=== PATIENT | male | born 1965 | race African-American/Black ===

== ENCOUNTER → 2016-12-29 | Outpatient (CLI) | payer OTHER ==
--- NOTE | 2016-12-30 10:00 | CR ---
EXAM DATE: 12/29/16 PATIENT'S AGE: 51 Patient: [facility] Facility: [place], [place] Site . Site : 1965 Study: XRay Extremity Right [id number]/24/2017 11:32:28 AM Ordering Physician: Renetta Vee Final Report: HISTORY: Pain in right hip. Findings: AP and frogleg views of hips excludes the iliac crests. The pelvis ring and sacral ala are intact. Joint spaces are maintained within the hips. No subchondral abnormality, fracture or dislocation seen. Impression: No acute bony abnormality within the right hip. Dictated by Debbie Eubanks MD @ Dec 30 2016 12:48AM (Electronic Signature) Report Signed by Proxy and Original Signed Document filed in the Medical Record. FELICIA
== END ==
LOC: MW.CHORTHO 07:38
PROVIDERS: ATTEND Orthopaedic Surgery
DX: M25.551 Pain in right hip (principal)
CPT/HCPCS: 73502-26-RT; 73502-RT

== ENCOUNTER 2019-03-30 06:22 | Day surgery (SDC) | payer OTHER ==
[~2019-03-30 06:22] MED LIST: Acetaminophen/HYDROcodone 325-5 MG Tab PO PRN; Lactated Ringers 1,000 ML IV SCH; ceFAZolin 2 GM in Premix Bag 1 BAG IV SCH
--- NOTE | 2019-03-30 07:11 | PCM.PREANE ---
Preanesthetic Assessment - Anesthesia/Transfusion/Family Hx Anesthesia History: Prior Anesthesia Without Reaction Other Type of Anesthesia Reaction Comment: Denies any known problems in the past Family History of Anesthesia Reaction: No Transfusion History: No Prior Transfusion(s) - Review of Systems General: No Symptoms Pulmonary: No Symptoms Cardiovascular: No Symptoms Gastrointestinal: No Symptoms Neurological: No Symptoms Other: Reports: None - Physical Assessment NPO Status Date: 03/29/19 O2 Sat by Pulse Oximetry: 97 Respiratory Rate: 16 Vital Signs: Last Vital Signs Temp 97.0 F 03/30/19 07:04 Pulse 87 03/30/19 07:04 Resp 16 03/30/19 07:04 BP 141/97 H 03/30/19 07:04 Pulse Ox 97 03/30/19 07:04 Height: 5 ft 8 in Weight: 102.058 kg ASA Class: 2 Mental Status: Alert & Oriented x3 Airway Class: Mallampati = 2 Dentition: Reports: Broken Tooth/Teeth (chipped central maxillary incisor) ROM/Head Extension: Full Lungs: Clear to Auscultation, Normal Respiratory Effort Cardiovascular: Regular Rate, Regular Rhythm - Allergies Allergies/Adverse Reactions: Allergies Allergy/AdvReac Type Severity Reaction Status Date / Time metformin Allergy Unknown Other Verified 03/30/19 06:49 - Blood Blood Available: No - Anesthesia Plan Pre-Op Medication Ordered: None - Acknowledgements Anesthesia Type Planned: General Anesthesia Pt an Appropriate Candidate for the Planned Anesthesia: Yes Alternatives and Risks of Anesthesia Discussed w Pt/Guardian: Yes Pt/Guardian Understands and Agrees with Anesthesia Plan: Yes Additional Comments: anes prob lit: smmoker PLAN: ga/lma PreAnesthesia Questionnaire HEENT History: Reports: None Cardiovascular History: Reports: Hypertension Respiratory History: Reports: None Gastrointestinal History: Reports: None Genitourinary History: Reports: None Musculoskeletal History: Reports: Fracture Other Musculoskeletal History: hx fx leg and both ankles Neurological History: Reports: None Psychiatric History: Reports: None Endocrine/Metabolic History: Reports: Obesity/BMI 30+ Hematologic History: Reports: None Immunologic History: Reports: None Oncologic (Cancer) History: Reports: None Dermatologic History: Reports: None - Past Surgical History Head Surgeries/Procedures: Reports: None HEENT Surgical History: Reports: None Cardiovascular Surgical History: Reports: None Respiratory Surgical History: Reports: None GI Surgical History: Reports: None Male Surgical History: Reports: None Endocrine Surgical History: Reports: None Neurological Surgical History: Reports: None Other Musculoskeletal Surgeries/Procedures:: ORIF both ankles Oncologic Surgical History: Reports: None Dermatological Surgical History: Reports: None - SUBSTANCE USE Smoking Status *Q: Current Every Day Smoker Tobacco Use Within Last Twelve Months: Cigarettes - HOME MEDS Home Medications: Home Meds Cholecalciferol (Vitamin D3) [Vitamin D3] 1,000 units PO DAILY 03/16/19 [History ] Losartan [Cozaar] 100 mg PO DAILY 03/16/19 [History] amLODIPine Besylate [Amlodipine Besylate] 10 mg PO DAILY 03/16/19 [History] traMADol HCl [Tramadol HCl] 50 mg PO ASDIRECTED PRN 03/16/19 [History] - CURRENT (IN HOUSE) MEDS Current Meds: Current Medications Hydrocodone Bitart/Acetaminophen ([place] 325-5 Mg) 1 - 2 tab PO Q4H PRN PRN Reason: Pain Lactated Ringer's (Ringers, Lactated) 1,000 mls @ 100 mls/hr IV ASDIRECTED JOSE ALFREDO Cefazolin Sodium/Dextrose 2 gm (/ Premix) 50 mls @ 100 mls/hr IV ONCALL JOSE ALFREDO Discontinued Medications Hydrocodone Bitart/Acetaminophen ([place] 325-5 Mg) 1 - 2 tab PO Q4H PRN PRN Reason: Pain Cefazolin Sodium/Dextrose 2 gm (/ Premix) 50 mls @ 100 mls/hr IV ONCALL JOSE ALFREDO Lactated Ringer's (Ringers, Lactated) 1,000 mls @ 100 mls/hr IV ASDIRECTED JOSE ALFREDO
[2019-03-30] MEDS ORDERED: Propofol 200 MG/20 ML SDV ONE (07:26)
[2019-03-30] MEDS ORDERED: Ondansetron 4 MG/2 ML SDV ONE (07:26)
[2019-03-30] MEDS ORDERED: Lidocaine 2% 5 ML SDV ONE (07:26)
[2019-03-30] MEDS ORDERED: fentaNYL 100 MCG/2 ML SDV ONE (07:26)
[2019-03-30] MEDS ORDERED: Lidocaine 1% 20 ML MDV ONE (07:26)
[2019-03-30] MEDS ORDERED: Midazolam 1 MG/ML 2 ML SDV ONE (07:26)
[2019-03-30] MEDS ORDERED: ceFAZolin/Dextrose,Iso-Osmotic 2 GM/50 ML Duplex Bag IV ONE (07:47)
[2019-03-30] MEDS ORDERED: ceFAZolin 2 GM in Premix Bag 1 BAG IV SCH (08:00)
[2019-03-30] MEDS ORDERED: Acetaminophen/HYDROcodone 325-5 MG Tab PO PRN (08:00)
[2019-03-30] MEDS ORDERED: 50% Dextrose in Water 50 ML Syringe IVPUSH PRN (08:35)
[2019-03-30] MEDS ORDERED: EPINEPHrine 1:10,000 1 MG/10 ML Syringe IVPUSH PRN (08:35)
[2019-03-30] MEDS ORDERED: Naloxone 0.4 MG/ML Syringe IVPUSH PRN (08:35)
[2019-03-30] MEDS ORDERED: Atropine 0.1 MG/ML 10 ML Syringe IVPUSH PRN ×2 (08:35)
[2019-03-30] MEDS ORDERED: Ketorolac 30 MG/ML SDV ONE (08:36)
--- NOTE | 2019-03-30 08:55 | PCM.OPNOTE ---
- General Post-Op/Procedure Note Date of Surgery/Procedure: 03/30/19 Operative Procedure(s): L knee scope with PMM Post-Op Diagnosis: DJD left knee, left knee med meniscus tear Anesthesia Technique: General LMA Primary Surgeon: Nimisha Law Tenter Frame Operator: Tiff Martines in mLs: 5 Condition: Good Free Text/Narrative:: tt=18 min #[id number]
[2019-03-30] MEDS: fentaNYL 100 MCG/2 ML SDV IVPUSH PRN ×2 (09:05→09:12)
--- NOTE | 2019-03-30 09:22 | PCM.POSTAN ---
POST ANESTHESIA ASSESSMENT - MENTAL STATUS Mental Status: Alert, Oriented - RESPIRATORY Respiratory Status: Respiratory Rate WNL, Airway Patent, O2 Saturation Stable - CARDIOVASCULAR CV Status: Pulse Rate WNL, Blood Pressure Stable - GASTROINTESTINAL GI Status: No Symptoms - PAIN Pain Score: 3 (Pt awake and talking in no distress) - POST OP HYDRATION Hydration Status: Adequate & Stable - OBSERVATIONS Free Text/Narrative:: Pt tolerated anesthesia well. No apparent complications.
[2019-03-30 10:16] VITALS: BP 116/73
--- NOTE | 2019-03-30 10:46 | PCM48HPAN ---
Post Anesthesia Note - EVALUATION WITHIN 48HRS OF ANESTHETIC Vital Signs in Normal Range: Yes Patient Participated in Evaluation: Yes Respiratory Function Stable: Yes Airway Patent: Yes Cardiovascular Function Stable: Yes Hydration Status Stable: Yes Pain Control Satisfactory: Yes Nausea and Vomiting Control Satisfactory: Yes Mental Status Recovered: Yes Resp Rate: 16
--- NOTE | 2019-03-30 10:48 | OR ---
SURGEON: Nimisha Law MD DATE OF PROCEDURE: 03/30/2019 PREOPERATIVE DIAGNOSIS: Left knee medial meniscus tear. POSTOPERATIVE DIAGNOSES: 1. Left knee medial meniscus tear. 2. Degenerative joint disease, left knee. PROCEDURE: Left knee arthroscopy with partial medial meniscectomy. PRIMARY SURGEON: Nimisha Law MD. UNLEAVENED DOUGH MIXER: YOVANNY Orozco. ANESTHESIA: General. ESTIMATED BLOOD LOSS: 5 mL. TOURNIQUET TIME: 18 minutes. COMPLICATIONS: None. DVT PROPHYLAXIS: Not indicated. IMPLANTS USED: None. BRIEF HISTORY: Shoaib is a 53-year-old male, who has had complaint of progressive left knee pain. An MRI did show a tear of the medial meniscus. Due to his lack of response to conservative treatment, I did recommend surgical intervention. The risks and goals of the procedure were discussed with the patient and were documented preoperatively. He agreed to proceed. DESCRIPTION OF PROCEDURE: The patient was properly identified and brought to the operating room. He was transferred from the OR cart and placed on the operating room table in supine position. General anesthesia was administered. After adequate anesthesia was obtained, a well-padded tourniquet was applied to the left lower extremity. Left lower extremity was then prepped in standard fashion using ChloraPrep solution. It was then sterilely draped. A time-out was performed to ensure correct site and procedure. Preoperative antibiotics were given. The surgical site had been marked preoperatively. An Esmarch was used to exsanguinate the left lower extremity and the tourniquet was inflated to 250 mmHg. A lateral portal arthrotomy was established. Blunt trocar and cannula were introduced into the suprapatellar pouch. Camera, inflow, and outflow were assembled. No significant synovitis was noted. The patellofemoral joint did show degenerative changes consistent with grade 2 to grade 3. The patella appeared to track centrally. I then extended down the lateral and medial gutter. No loose bodies were identified. I then entered the medial compartment. A medial portal arthrotomy was established. A blunt probe was inserted. Tearing of the medial meniscus was noted. It was found to be unstable. Using a combination of biters and shaver, this was resected back to a stable remnant. It was again probed and the remainder was found to be intact. The medial femoral condyle showed diffuse grade 2 to grade 3 chondromalacia along with similar findings on the medial tibial plateau. I then entered the notch. Both the ACL and PCL were probed and found to be intact. I then entered the lateral compartment. The meniscus was probed and found to be stable. No tearing was noted. The lateral tibial plateau showed diffuse grade 2 findings. A chondroplasty was performed to remove any loose cartilage fragments. Grade 1 chondromalacia was noted along the lateral femoral condyle. I then re-entered the patellofemoral joint. Chondroplasty of the patella was performed to remove any loose cartilage fragments. Instruments were then removed from the knee. The portal sites were closed with 3-0 nylon. 1% lidocaine was injected along the portal tracts. Xeroform gauze was placed over the wounds and a bulky dressing was applied. The tourniquet was then deflated. He was awakened from his anesthetic and transferred back to the operating room cart. He was brought to recovery room in stable condition. All needle and sponge counts were correct. RADHA / ARIELLE /[id number]
== END 2019-03-30 10:05 | disposition home or self-care (01) ==
LOC: MW.SDS 06:22
PROVIDERS: ATTEND Orthopaedic Surgery
DX: S83.242A Other tear of medial meniscus, current injury, left knee, initial encounter (principal); M17.12 Unilateral primary osteoarthritis, left knee; M94.262 Chondromalacia, left knee; I10 Essential (primary) hypertension; E11.9 Type 2 diabetes mellitus without complications; E78.5 Hyperlipidemia, unspecified; F17.210 Nicotine dependence, cigarettes, uncomplicated; X58.XXXA Exposure to other specified factors, initial encounter; Z88.8 Allergy status to other drugs, medicaments and biological substances; Z79.899 Other long term (current) drug therapy
CPT/HCPCS: J0690; J1885; J2001; J2250; J2405; J2704; J3010; J7120

== ENCOUNTER 2020-03-09 13:55 | Emergency (ER) | payer OTHER ==
--- NOTE | 2020-03-09 15:10 | CR ---
Right ankle: 3 views of the right ankle were obtained. Orthopedic hardware is noted within the distal tibia. Acute fracture is seen directly above the hardware within the distal tibia. Displacement by about one cortical width is seen. Distal fibula appears intact. Impression: 1. Acute tibial fracture as described above. Diagnostic code #5 This report was dictated in MDT
--- NOTE | 2020-03-09 15:11 | CR ---
Right tibia and fibula: AP and lateral views of the right tibia and fibula were obtained. Distal tibial diaphyseal fracture is seen with slight displacement and mild comminution. This fracture occurs along the superior aspect of orthopedic hardware. Proximal fibular shaft fracture is noted with slight displacement. No additional bony abnormality is seen. Soft tissue swelling is noted. Impression: 1. Distal tibial diaphyseal fracture and proximal fibular shaft fracture. 2. Soft tissue swelling. Diagnostic code #5 This report was dictated in MDT
--- NOTE | 2020-03-09 15:13 | EDM.PDOC ---
ED HPI GENERAL MEDICAL PROBLEM - General Chief Complaint: Lower Extremity Injury/Pain Stated Complaint: INJURY RT LEG Time Seen by Provider: 03/09/20 15:12 Source of Information: Reports: Patient History Limitations: Reports: No Limitations - History of Present Illness INITIAL COMMENTS - FREE TEXT/NARRATIVE: 54-year-old male with a history of ORIF to the right ankle for ankle fracture presents with right ankle pain. He was walking and got his right foot stuck in mud and fell sideways and heard a snap to his right ankle. He complains of pain to his right upper ankle only. Pain is moderate, nonradiating, constant, exacerbated with range of motion. ROS: A 10-point review of systems, other than pertinent positives and negatives as stated per HPI, is otherwise negative PHYSICAL EXAM General: AOx4, GCS = 15, moderate distress HEENT: dry mucous membrane Neck: supple, no meningismus, no Kernig or Brudzinski Cardiac: S1S2 RRR Respiratory: CTAB, no crackles or rales, no wheezing Abdomen: Soft, nontender, no rebound or guarding, nondistended, no pulsatile mass. Back: nontender Musculoskeletal: NVI distally, no deformity, ttp to distal tib and proximal fib, soft compartments. No ttp right foot/knee. Neuro: No focal deficits, CN 2 - 12 WNL. Right Lower Leg Pain Score (Numeric/FACES): 10 - Related Data Allergies Allergy/AdvReac Type Severity Reaction Status Date / Time metformin Allergy Unknown Dizziness Verified 03/09/20 15:12 Home Meds: Home Meds Cholecalciferol (Vitamin D3) [Vitamin D3] 1,000 units PO DAILY 03/16/19 [History] Losartan [Cozaar] 100 mg PO DAILY 03/16/19 [History] amLODIPine Besylate [Amlodipine Besylate] 10 mg PO DAILY 03/16/19 [History] traMADol HCl [Tramadol HCl] 50 mg PO ASDIRECTED PRN 03/16/19 [History] Past Medical History HEENT History: Reports: None Cardiovascular History: Reports: Hypertension Respiratory History: Reports: None Gastrointestinal History: Reports: None Genitourinary History: Reports: None Musculoskeletal History: Reports: Fracture Other Musculoskeletal History: hx fx leg and both ankles Neurological History: Reports: None Psychiatric History: Reports: None Endocrine/Metabolic History: Reports: Obesity/BMI 30+ Hematologic History: Reports: None Immunologic History: Reports: None Oncologic (Cancer) History: Reports: None Dermatologic History: Reports: None - Past Surgical History Head Surgeries/Procedures: Reports: None HEENT Surgical History: Reports: None Cardiovascular Surgical History: Reports: None Respiratory Surgical History: Reports: None GI Surgical History: Reports: None Male Surgical History: Reports: None Endocrine Surgical History: Reports: None Neurological Surgical History: Reports: None Other Musculoskeletal Surgeries/Procedures:: ORIF both ankles Oncologic Surgical History: Reports: None Dermatological Surgical History: Reports: None Review of Systems - Review of Systems Review Of Systems: Comprehensive ROS is negative, except as noted in HPI. ED EXAM, GENERAL - Physical Exam Exam: See Below (see dictation) ED TRAUMA EXTREMITY PROCEDURES - Splinting Right Lower Extremity Pre-Procedure NV Status: Normal Post-Procedure NV Status: Normal Splint Material: Plaster Splint Design: Posterior Applied & Form Fitted By: Nurse Provider Post-Splint Application NV Check: NV Status Normal, Good Position Complications: No Course - Vital Signs Last Recorded V/S: Last Vital Signs Temp 96.4 F L 03/09/20 15:09 Pulse 79 03/09/20 15:09 Resp 18 03/09/20 15:09 BP 152/92 H 03/09/20 15:09 Pulse Ox 98 03/09/20 15:09 - Orders/Labs/Meds Meds: Medications Discontinued Medications Generic Name Dose Route Start Last Admin Trade Name Freq PRN Reason Stop Dose Admin Oxycodone/Acetaminophen 1 tab 03/09/20 15:56 03/09/20 16:02 Percocet 325-5 Mg PO 03/09/20 15:57 1 tab ONETIME ONE Administration - Re-Assessments/Exams Free Text/Narrative Re-Assessment/Exam: 03/09/20 16:[address] Xavier Garcia, he recommends posterior long splint he will call him on Thursday to schedule for surgery on Thursday. I advised the patient to return to the ER for reevaluation if symptoms worsened, and to follow up with Dr. Garcia for surgery on Thursday. MDM: The affected extremity demonstrated good distal perfusion, warm, pink, cap refill <2 seconds, compartments soft, pulses equal in both extremities. Patient understands to return immediately for worsening pain, swelling, fever, n umbness/tingling or other concerns and to f/u with Dr. Garcia for surgery on Thursday. Departure - Departure Time of Disposition: 16:46 Disposition: Home, Self-Care 01 Condition: Good Clinical Impression: Tibia/fibula fracture - Discharge Information *PRESCRIPTION DRUG MONITORING PROGRAM REVIEWED*: Not Applicable *COPY OF PRESCRIPTION DRUG MONITORING REPORT IN PATIENT VENITA: Not Applicable Instructions: Cast or Splint Care, Adult, [id number], Crutch Use, Adult, [id number], Tibial and Fibular Fractures Referrals: Xavier Garcia MD [Physician] - 2 Days Forms: ED Department Discharge Additional Instructions: The following information is given to patients seen in the emergency department who are being discharged to home. This information is to outline your options for follow-up care. We provide all patients seen in our emergency department with a follow-up referral. The need for follow-up, as well as the timing and circumstances, are variable depending upon the specifics of your emergency department visit. If you don't have a primary care physician on staff, we will provide you with a referral. We always advise you to contact your personal physician following an emergency department visit to inform them of the circumstance of the visit and for follow-up with them and/or the need for any referrals to a consulting specialist. The emergency department will also refer you to a specialist when appropriate. This referral assures that you have the opportunity for follow-up care with a specialist. All of these measure are taken in an effort to provide you with optimal care, which includes your follow-up. Under all circumstances we always encourage you to contact your private physician who remains a resource for coordinating your care. When calling for follow-up care, please make the office aware that this follow-up is from your recent emergency room visit. If for any reason you are refused follow-up, please contact the [facility] Emergency Department at and asked to speak to the emergency department charge nurse. Sepsis Event Note (ED) - Evaluation Sepsis Screening Result: No Definite Risk - Focused Exam Vital Signs: Vital Signs Temp Pulse Resp BP Pulse Ox 03/09/20 15:09 96.4 F L 79 18 152/92 H 98
[2020-03-09] MEDS ORDERED: Acetaminophen/oxyCODONE 325-5 MG Tab PO ONE (15:56)
[2020-03-09 18:38] VITALS: BP 197/86; PULSE 87
== END 2020-03-09 17:34 | disposition home or self-care (01) ==
LOC: MW.ED 13:55
DX: S82.201A Unspecified fracture of shaft of right tibia, initial encounter for closed fracture (principal); S82.401A Unspecified fracture of shaft of right fibula, initial encounter for closed fracture; I10 Essential (primary) hypertension; E66.9 Obesity, unspecified; Z68.38 Body mass index [BMI] 38.0-38.9, adult; Z79.899 Other long term (current) drug therapy; W22.8XXA Striking against or struck by other objects, initial encounter
CPT/HCPCS: 29505; 73590; 73610; 99283; A9270

== ENCOUNTER 2020-03-12 10:06 | Day surgery (SDC) | payer OTHER ==
[2020-03-12] MEDS ORDERED: Lactated Ringers 1,000 ML IV SCH (10:15)
[2020-03-12] MEDS ORDERED: fentaNYL 50 MCG/ML SDV IVPUSH ONE ×2 (10:42→11:03)
[2020-03-12] MEDS ORDERED: fentaNYL 100 MCG/2 ML SDV ONE (10:44)
--- NOTE | 2020-03-12 10:53 | PCM.PREANE ---
Preanesthetic Assessment - Anesthesia/Transfusion/Family Hx Anesthesia History: Prior Anesthesia Without Reaction Other Type of Anesthesia Reaction Comment: Denies any known problems in the past Family History of Anesthesia Reaction: No Transfusion History: No Prior Transfusion(s) - Review of Systems General: No Symptoms Pulmonary: No Symptoms Cardiovascular: No Symptoms Gastrointestinal: No Symptoms Neurological: No Symptoms - Physical Assessment NPO Status Date: 03/11/20 Height: 5 ft 8.5 in Weight: 99.79 kg ASA Class: 3 Mental Status: Alert & Oriented x3 Airway Class: Mallampati = 2 Dentition: Reports: Broken Tooth/Teeth (chipped central maxillary incisor) ROM/Head Extension: Full Lungs: Clear to Auscultation, Normal Respiratory Effort Cardiovascular: Regular Rate, Regular Rhythm - Allergies Allergies/Adverse Reactions: Allergies Allergy/AdvReac Type Severity Reaction Status Date / Time metformin Allergy Unknown Dizziness Verified 03/12/20 08:05 - Blood Blood Available: No - Anesthesia Plan Pre-Op Medication Ordered: None - Acknowledgements Anesthesia Type Planned: General Anesthesia Pt an Appropriate Candidate for the Planned Anesthesia: Yes Alternatives and Risks of Anesthesia Discussed w Pt/Guardian: Yes Pt/Guardian Understands and Agrees with Anesthesia Plan: Yes Additional Comments: PMH: htn, inadequately controlled, sbp 150-170, DBP 92-110 PLAN: iv hydralazine in pre op holding, ga/lma PreAnesthesia Questionnaire HEENT History: Reports: None Cardiovascular History: Reports: Hypertension Respiratory History: Reports: None Gastrointestinal History: Reports: None Genitourinary History: Reports: None Musculoskeletal History: Reports: Fracture Other Musculoskeletal History: hx fx leg and both ankles Neurological History: Reports: None Psychiatric History: Reports: None Endocrine/Metabolic History: Reports: Obesity/BMI 30+ Hematologic History: Reports: None Immunologic History: Reports: None Oncologic (Cancer) History: Reports: None Dermatologic History: Reports: None - Infectious Disease History Infectious Disease History: Reports: None - Past Surgical History Head Surgeries/Procedures: Reports: None HEENT Surgical History: Reports: None Cardiovascular Surgical History: Reports: None Respiratory Surgical History: Reports: None GI Surgical History: Reports: None Male Surgical History: Reports: None Endocrine Surgical History: Reports: None Neurological Surgical History: Reports: None Musculoskeletal Surgical History: Reports: Arthroscopic Knee Other Musculoskeletal Surgeries/Procedures:: ORIF both ankles, left knee scope Oncologic Surgical History: Reports: None Dermatological Surgical History: Reports: None - SUBSTANCE USE Smoking Status *Q: Current Every Day Smoker Tobacco Use Within Last Twelve Months: Cigarettes Days Per Week of Alcohol Use: 7 Number of Drinks Per Day: 2 Total Drinks Per Week: 14 - HOME MEDS Home Medications: Home Meds Cholecalciferol (Vitamin D3) [Vitamin D3] 1,000 units PO DAILY 03/16/19 [History] Losartan [Cozaar] 100 mg PO DAILY 03/16/19 [History] amLODIPine Besylate [Amlodipine Besylate] 10 mg PO DAILY 03/16/19 [History] traMADol HCl [Tramadol HCl] 50 mg PO ASDIRECTED PRN 03/16/19 [History] Acetaminophen/oxyCODONE [Percocet 325-5 MG] 1 each PO Q6H PRN 03/12/20 [History] - CURRENT (IN HOUSE) MEDS Current Meds: Current Medications Fentanyl (Fentanyl) 50 mcg IVPUSH ONETIME ONE Stop: 03/12/20 10:43 Lactated Ringer's (Ringers, Lactated) 1,000 mls @ 125 mls/hr IV ASDIRECTED JOSE ALFREDO
[2020-03-12] MEDS ORDERED: Propofol 200 MG/20 ML SDV ONE (11:02)
[2020-03-12] MEDS ORDERED: Rocuronium Bromide 50 MG/5 ML Syringe ONE (11:03)
[2020-03-12] MEDS ORDERED: Lidocaine 2% 5 ML SDV ONE (11:03)
[2020-03-12] MEDS ORDERED: Midazolam 1 MG/ML 2 ML SDV ONE (11:03)
[2020-03-12] MEDS ORDERED: fentaNYL 250 MCG/5 ML SDV ONE (11:03)
[2020-03-12] MEDS ORDERED: hydrALAZINE 20 MG/ML SDV IVPUSH ONE ×3 (11:03→16:30)
[2020-03-12] MEDS ORDERED: Bupivacaine 0.25% 10 ML SDV ONE (11:04)
[2020-03-12] MEDS ORDERED: Sugammadex Sodium 200 MG/2 ML VIAL ONE (11:06)
[2020-03-12] MEDS ORDERED: hydrALAZINE 20 MG/ML SDV ONE (11:15)
[2020-03-12] MEDS ORDERED: ceFAZolin 2 GM in Premix Bag 1 BAG IV SCH (11:45)
[2020-03-12] MEDS ORDERED: ceFAZolin/Dextrose,Iso-Osmotic 2 GM/50 ML Duplex Bag IV ONE (11:48)
[2020-03-12] MEDS ORDERED: Atropine 0.1 MG/ML 10 ML Syringe IVPUSH PRN ×2 (12:15)
[2020-03-12] MEDS ORDERED: Albuterol 0.083% 2.5 MG/3 ML Neb Soln NEB PRN (12:15)
[2020-03-12] MEDS ORDERED: 50% Dextrose in Water 50 ML Syringe IVPUSH PRN (12:15)
[2020-03-12] MEDS ORDERED: Naloxone 0.4 MG/ML Syringe IVPUSH PRN (12:15)
[2020-03-12] MEDS ORDERED: fentaNYL 100 MCG/2 ML SDV IVPUSH PRN (12:15)
[2020-03-12] MEDS ORDERED: EPINEPHrine 1:10,000 1 MG/10 ML Syringe IVPUSH PRN (12:15)
[2020-03-12] MEDS ORDERED: HYDROmorphone 2 MG/ML Syringe ONE (13:38)
[2020-03-12] MEDS ORDERED: Ketorolac 30 MG/ML SDV ONE (13:59)
--- NOTE | 2020-03-12 14:15 | PCM.OPNOTE ---
- General Post-Op/Procedure Note Date of Surgery/Procedure: 03/12/20 Operative Procedure(s): Open reduction and internal fixation of right tibia shaft fracture Findings: Right displaced spiral distal tibia shaft fracture above previous plate and screws Pre Op Diagnosis: Right displaced spiral distal tibia shaft fracture above previous plate and screws Post-Op Diagnosis: Right displaced spiral distal tibia shaft fracture above previous plate and screws Anesthesia Technique: General LMA Primary Surgeon: Xavier Garcia Managing Supervisor: Tiff Martines Managing Supervisor Was Necessary: Retraction and fracture reduction. EBL in mLs: 10 Complications: None Condition: Good Free Text/Narrative:: The risks and benefits of surgery for open reduction and internal fixation of the tibia shaft fracture was discussed with the patient. In particular, we discussed the risks of delayed union or nonunion and advised him to discontinue smoking. Patient consented to proceed with surgery. Patient was taken to the operating room. Patient remained in a supine position after adequate general anesthesia. A tourniquet was placed around the right proximal thigh. The right lower extremity was prepped and draped in the usual sterile manner. The leg elevated and the tourniquet inflated. A previous anterior incision was extended proximally over the fracture site. Skin was incised with a scalpel. Subcutaneous tissue was incised electrocautery. Tissues were elevated subperiosteally to expose the fracture site and the previous plate. The most proximal screw was removed so it did not lock the fracture reduction. A longitudinal incision over the medial malleolus was made with care to leave a adequate skin bridge from the previous anterior incision. Skin was incised with a scalpel. Subcutaneous tissue was incised with electrocautery. Tissues were elevated subperiosteally anteriorly and posteriorly. Significant callus or heterotopic ossification was encasing the posterior tibial tendon. This was removed with a Ronjair to expose the foreign normal medial malleolus anatomy. The posterior tibial tendon was partially torn and this was repaired with a #2 FiberWire suture. Fracture was exposed through the medial incision. With longitudinal traction and the fracture was able to be reduced anatomically with a reduction clamp. An anterior to posterior lag screw was then placed for provisional reduction. A longitudinal incision was made over the anterior border of the tibia shaft proximally. Skin was incised with scalpel. Subcutaneous tissue was incised electrocautery. The periosteum was elevated. A elevator was used to make a tract for a medial distal tibia locking plate from the fracture site to the more proximal incision. A 16 hole Disney medial distal tibial locking plate was then inserted subcutaneously from the distal medial incision to the proximal incision. The plate had to be recontoured because of the patient's previous fracture and abnormal anatomy. 2 bicortical screws proximally and one bicortical screw distally were placed to reduce the plate to the bone. A lag screw was placed across the fracture site through the plate. C-arm was brought into note anatomic reduction. An additional bicortical screw was placed proximally and then multiple locking and conventional screws distally. C-arm confirmed good position of the plate and hardware and anatomic reduction of the fracture. Wounds were then irrigated. The proximal incision was closed with interrupted #1 Vicryl sutures for the deep fascia, 2-0 Vicryl suture for the subcutaneous tissue, and then a running absorbable subcuticular suture with Steri-Strips for final skin closure. The previous anterior incision was closed with full-thickness 2-0 nylon interrupted sutures. The distal medial incision was closed with interrupted #1 Vicryl sutures for deep closure and then interrupted nylon sutures for the skin closure. A sterile dressing was applied and soft tissue padding with an Pancho wrap. Patient was accompanied to the recovery room in stable condition. Pain medication: Ibuprofen, [place], and elevation to reduce swelling and throbbing. Venous thromboembolism prophylaxis: Enteric-coated aspirin daily for 90 days Prophylactic antibiotics: Not indicated. Restrictions: Patient is strictly nonweightbearing on his right lower extremity for 3 months. He was given a prescription for a kneeling scooter for mobility as well as using crutches. He has full ankle range of motion without restrictions. He was advised to quit smoking and not use any nicotine products because of the risk for delayed healing or nonunion.
--- NOTE | 2020-03-12 14:55 | PCM.POSTAN ---
POST ANESTHESIA ASSESSMENT - MENTAL STATUS Mental Status: Alert - VITAL SIGNS Vital Signs: Last Vital Signs Temp 36.3 C 03/12/20 14:17 Pulse 116 H 03/12/20 14:49 Resp 14 03/12/20 14:49 BP 176/94 H 03/12/20 14:49 Pulse Ox 95 03/12/20 14:49 - RESPIRATORY Respiratory Status: Respiratory Rate WNL - CARDIOVASCULAR CV Status: Blood Pressure Stable, Elevated Pulse Rate Free Text/Narrative:: BP continues to run high. - GASTROINTESTINAL GI Status: No Symptoms - PAIN Pain Score: 3 - POST OP HYDRATION Hydration Status: Adequate & Stable (Progressing well. Will monitor BP and HR closely.)
--- NOTE | 2020-03-12 15:25 | CR ---
Right tibia: 6 fluoroscopic spot views were obtained of the right tibia and fibula. Comparison: Previous right ankle and right tibia/fibula study of 03/09/20. Previous distal tibial fracture shows fixation with plate and screws. Old plate and screws are also noted within the distal tibia. Fluoroscopy time given as 25.9 seconds Impression: 1. Fixation of previous distal tibial fracture. Diagnostic code #2 This report was dictated in MDT
[2020-03-12] MEDS ORDERED: oxyCODONE 5 MG Tab PO ONE (15:53)
--- NOTE | 2020-03-12 16:54 | PCM48HPAN ---
Post Anesthesia Note - EVALUATION WITHIN 48HRS OF ANESTHETIC Vital Signs in Normal Range: Yes Patient Participated in Evaluation: Yes Respiratory Function Stable: Yes Airway Patent: Yes Cardiovascular Function Stable: Yes Hydration Status Stable: Yes Pain Control Satisfactory: Yes Nausea and Vomiting Control Satisfactory: Yes Mental Status Recovered: Yes Vital Signs: Last Vital Signs Temp 37.5 C 03/12/20 15:05 Pulse 108 H 03/12/20 16:40 Resp 15 03/12/20 16:40 BP 164/109 H 03/12/20 16:40 Pulse Ox 96 03/12/20 16:40
[2020-03-12 17:37] VITALS: BP 151/86; PULSE 106
== END 2020-03-12 17:15 | disposition home or self-care (01) ==
LOC: MW.SDS 10:06
PROVIDERS: ATTEND Orthopaedic Surgery
DX: S82.241A Displaced spiral fracture of shaft of right tibia, initial encounter for closed fracture (principal); F17.210 Nicotine dependence, cigarettes, uncomplicated; I10 Essential (primary) hypertension; E66.9 Obesity, unspecified; Z11.59 Encounter for screening for other viral diseases; Z79.899 Other long term (current) drug therapy; Z88.8 Allergy status to other drugs, medicaments and biological substances; Z68.33 Body mass index [BMI] 33.0-33.9, adult; X58.XXXA Exposure to other specified factors, initial encounter
CPT/HCPCS: 27758; 87635; A9270; C1713; C1776; J0131; J0360; J0690; J1170; J1885; J2001; J2250; J2704; J3010; J3490; J7120; 01392; U0002

== ENCOUNTER 2021-05-16 12:12 | Emergency (ER) | payer OTHER ==
--- NOTE | 2021-05-16 12:27 | EDM.PDOC ---
ED HPI GENERAL MEDICAL PROBLEM - General Chief Complaint: Chest Pain Stated Complaint: STOMACHE PAINS CHEST PAIN Time Seen by Provider: 05/16/21 12:20 - History of Present Illness INITIAL COMMENTS - FREE TEXT/NARRATIVE: History of present illness: [] This pleasant 55-year-old gentleman reports that he has pain in his anterior chest and all over his abdomen. It happens in episodes frequently for the last 5 days. It is clearly worse with exertion and associated with diaphoresis nausea and dyspnea. The patient walks and gets out of breath he feels the pain and it lasts as long as 10 minutes. When he rests it gets better. He has not had a bowel movement for the 5 days and that is unusual for him. On second questioning said he has very small soft stools occasionally during this time. But no significant amount of bowel movement and not feeling like he empties. The patient smokes. He is prediabetic. He has a negative family history for coronary vessel disease and stroke. Review of systems: As per history of present illness and below otherwise all systems reviewed and negative. Past medical history: As per history of present illness and as reviewed below otherwise noncontributory. Surgical history: As per history of present illness and as reviewed below otherwise noncontributory. Social history: No reported history of drug or alcohol abuse. Family history: As per history of present illness and as reviewed below otherwise noncontributory. Physical exam: Constitutional - well developed, well-nourished and in no acute distress HEENT - normocephalic, no evidence of trauma - external nose and mouth normal - no mass in neck and no JVD - mucosae moist EYES - full EOM, PERRL, no icterus - no evidence of inflammation, injection, or drainage Respiratory - no respiratory distress, equal bilateral expansion, lungs clear to auscultation and no abnormal lung sounds Cardiovascular - Regular Rhythm with S1 and S2 appreciated and no murmur, gallop or rub. GI - abdomen soft without distension or organomegaly - normal bowel sounds - no guard or rebound Musculoskeletal no gross deformity of long bones or joints - no tenderness, swelling or edema Neurologic - Alert and oriented times four - CN II-XII grossly intact - motor sensory and coordination symmetrically normal Psychiatric - appropriate mood and affect with normal thought content Hematologic - No petechiae or purpura - mucosa appropriate color and sclera not pale - normal nail bed color and refill Integument - no rash or evidence of trauma - normal turgor Diagnostics: [] Therapeutics: [] Impression: [] Plan: [] Definitive disposition and diagnosis as appropriate pending reevaluation and review of above. chest Pain Score (Numeric/FACES): 9 - Related Data Allergies Allergy/AdvReac Type Severity Reaction Status Date / Time metformin Allergy Unknown Dizziness Verified 05/16/21 12:24 Home Meds: Home Meds Cholecalciferol (Vitamin D3) [Vitamin D3] 1,000 units PO DAILY 03/16/19 [History] Losartan [Cozaar] 100 mg PO DAILY 03/16/19 [History] amLODIPine Besylate [Amlodipine Besylate] 10 mg PO DAILY 03/16/19 [History] Acetaminophen/HYDROcodone [[place] 325-5 MG] 1 tab PO Q6H PRN #20 tablet 03/12/20 [Rx] Aspirin [Aspirin EC] 325 mg PO DAILY #90 tablet. 03/12/20 [Rx] Ibuprofen 800 mg PO QID PRN #100 tablet 03/12/20 [Rx] Pantoprazole [ProTONIX] 40 mg PO DAILY #60 tab.cr 05/16/21 [Rx] Past Medical History HEENT History: Reports: None Cardiovascular History: Reports: Hypertension Respiratory History: Reports: None Gastrointestinal History: Reports: None Genitourinary History: Reports: None Musculoskeletal History: Reports: Fracture Other Musculoskeletal History: hx fx leg and both ankles Neurological History: Reports: None Psychiatric History: Reports: None Endocrine/Metabolic History: Reports: Obesity/BMI 30+ Hematologic History: Reports: None Immunologic History: Reports: None Oncologic (Cancer) History: Reports: None Dermatologic History: Reports: None - Infectious Disease History Infectious Disease History: Reports: None - Past Surgical History Head Surgeries/Procedures: Reports: None HEENT Surgical History: Reports: None Cardiovascular Surgical History: Reports: None Respiratory Surgical History: Reports: None GI Surgical History: Reports: None Male Surgical History: Reports: None Endocrine Surgical History: Reports: None Neurological Surgical History: Reports: None Musculoskeletal Surgical History: Reports: Arthroscopic Knee Other Musculoskeletal Surgeries/Procedures:: ORIF both ankles, left knee scope Oncologic Surgical History: Reports: None Dermatological Surgical History: Reports: None ED ROS GENERAL - Review of Systems Review Of Systems: Comprehensive ROS is negative, except as noted in HPI. ED EXAM, GENERAL - Physical Exam Exam: See Below Free Text/Narrative:: My physical exam is in the HPI #1 Interpretation EKG Interpretation Comments: EKG performed 05/16/2021 at 12:12 PM sinus tachycardia heart rate 99 MA 132 QT duration 485 axis 35 1 ventricular premature complex. QRS shows an RSR prime in V1 V2 T waves had nonspecific abnormality in the lateral leads there is no prior for comparison impression no obvious acute injury Course - Vital Signs Text/Narrative:: 1350 the patient has leukocytosis. Reexamine of his abdomen shows tenderness in the right hypogastrium right side of the abdomen. He guards with deep pressure. Patient has no significant chest pain resting. Last Recorded V/S: Last Vital Signs Temp 35.5 C L 05/16/21 12:21 Pulse 94 05/16/21 12:21 Resp 17 05/16/21 12:21 BP 124/84 05/16/21 12:21 Pulse Ox 98 05/16/21 12:21 - Orders/Labs/Meds Orders: Active Orders 24 hr Category Date Time Status Sodium Chloride 0.9% [Saline Flush] Med 05/16/21 12:37 Active 10 ml FLUSH ASDIRECTED PRN Sodium Chloride 0.9% [Saline Flush] Med 05/16/21 12:37 Active 2.5 ml FLUSH ASDIRECTED PRN Saline Lock Insert [OM.PC] Stat Oth 05/16/21 12:38 Ordered Medication Orders Sodium Chloride (Sodium Chloride 0.9% 10 Ml Syringe) 10 ml FLUSH ASDIRECTED PRN PRN Reason: Keep Vein Open Last Admin: 05/16/21 13:58 Dose: 10 ml Documented by: Admin: 05/16/21 12:51 Dose: 10 ml Documented by: LUCRECIA Sodium Chloride (Sodium Chloride 0.9% 2.5 Ml Syringe) 2.5 ml FLUSH ASDIRECTED PRN PRN Reason: Keep Vein Open Last Admin: 05/16/21 13:58 Dose: 2.5 ml Documented by: Admin: 05/16/21 12:50 Dose: 2.5 ml Documented by: LUCRECIA Labs: Laboratory Tests 05/16/21 05/16/21 05/16/21 Range/Units 12:50 12:50 12:57 WBC 14.79 H (4.0-11.0) K/uL RBC 3.99 L (4.50-5.90) M/uL Hgb 13.6 (13.0-17.0) g/dL Hct 38.2 (38.0-50.0) % MCV 95.7 (80.0-98.0) fL MCH 34.1 H (27.0-32.0) pg MCHC 35.6 (31.0-37.0) g/dL RDW Std Deviation 43.5 (28.0-62.0) fl RDW Coeff of [place] 13 (11.0-15.0) % Plt Count 366 (150-400) K/uL MPV 9.40 (7.40-12.00) fL Neut % (Auto) 64.5 (48.0-80.0) % Lymph % (Auto) 25.2 (16.0-40.0) % [place] % (Auto) 9.6 (0.0-15.0) % Eos % (Auto) 0.5 (0.0-7.0) % Baso % (Auto) 0.2 (0.0-1.5) % Neut # (Auto) 9.5 H (1.4-5.7) K/uL Lymph # (Auto) 3.7 H (0.6-2.4) K/uL [place] # (Auto) 1.4 H (0.0-0.8) K/uL Eos # (Auto) 0.1 (0.0-0.7) K/uL Baso # (Auto) 0.0 (0.0-0.1) K/uL Nucleated RBC % 0.0 /100WBC Nucleated RBCs # 0 K/uL Sodium 138 (136-148) mmol/L Potassium 3.7 (3.5-5.1) mmol/L Chloride 103 (98-107) mmol/L Carbon Dioxide 28.0 (21.0-32.0) mmol/L BUN 19 H (7.0-18.0) mg/dL Creatinine 1.1 (0.8-1.3) mg/dL Est Cr Clr Drug Dosing 66.86 mL/min Estimated GFR (MDRD) > 60.0 ml/min Glucose 144 H (74-106) mg/dL Lactic Acid 1.1 (0.4-2.0) mmol/L Calcium 8.7 (8.5-10.1) mg/dL Total Bilirubin 0.3 (0.2-1.0) mg/dL AST 18 (15-37) IU/L ALT 22 (14-63) IU/L Alkaline Phosphatase 99 (46-116) U/L Troponin I < 0.050 (0.000-0.056) ng/mL Total Protein 7.2 (6.4-8.2) g/dL Albumin 3.6 (3.4-5.0) g/dL Globulin 3.6 (2.6-4.0) g/dL Albumin/Globulin Ratio 1.0 (0.9-1.6) Lipase 75 (73-393) U/L Urine Color Urine Appearance Urine pH (5.0-8.0) Ur Specific [place] (1.001-1.035) Urine Protein (NEGATIVE) mg/dL Urine Glucose (UA) (NEGATIVE) mg/dL Urine Ketones (NEGATIVE) mg/dL Urine Occult Blood (NEGATIVE) Urine Nitrite (NEGATIVE) Urine Bilirubin (NEGATIVE) Urine Urobilinogen (<2.0) EU/dL Ur Leukocyte Esterase (NEGATIVE) Urine RBC (0-2/HPF) Urine WBC (0-5/HPF) Ur Epithelial Cells (NONE-FEW) Urine Bacteria (NEGATIVE) 05/16/21 Range/Units 15:30 WBC (4.0-11.0) K/uL RBC (4.50-5.90) M/uL Hgb (13.0-17.0) g/dL Hct (38.0-50.0) % MCV (80.0-98.0) fL MCH (27.0-32.0) pg MCHC (31.0-37.0) g/dL RDW Std Deviation (28.0-62.0) fl RDW Coeff of [place] (11.0-15.0) % Plt Count (150-400) K/uL MPV (7.40-12.00) fL Neut % (Auto) (48.0-80.0) % Lymph % (Auto) (16.0-40.0) % [place] % (Auto) (0.0-15.0) % Eos % (Auto) (0.0-7.0) % Baso % (Auto) (0.0-1.5) % Neut # (Auto) (1.4-5.7) K/uL Lymph # (Auto) (0.6-2.4) K/uL [place] # (Auto) (0.0-0.8) K/uL Eos # (Auto) (0.0-0.7) K/uL Baso # (Auto) (0.0-0.1) K/uL Nucleated RBC % /100WBC Nucleated RBCs # K/uL Sodium (136-148) mmol/L Potassium (3.5-5.1) mmol/L Chloride (98-107) mmol/L Carbon Dioxide (21.0-32.0) mmol/L BUN (7.0-18.0) mg/dL Creatinine (0.8-1.3) mg/dL Est Cr Clr Drug Dosing mL/min Estimated GFR (MDRD) ml/min Glucose (74-106) mg/dL Lactic Acid (0.4-2.0) mmol/L Calcium (8.5-10.1) mg/dL Total Bilirubin (0.2-1.0) mg/dL AST (15-37) IU/L ALT (14-63) IU/L Alkaline Phosphatase (46-116) U/L Troponin I (0.000-0.056) ng/mL Total Protein (6.4-8.2) g/dL Albumin (3.4-5.0) g/dL Globulin (2.6-4.0) g/dL Albumin/Globulin Ratio (0.9-1.6) Lipase (73-393) U/L Urine Color YELLOW Urine Appearance CLEAR Urine pH 6.5 (5.0-8.0) Ur Specific [place] <= 1.005 (1.001-1.035) Urine Protein NEGATIVE (NEGATIVE) mg/dL Urine Glucose (UA) NEGATIVE (NEGATIVE) mg/dL Urine Ketones NEGATIVE (NEGATIVE) mg/dL Urine Occult Blood TRACE-INTACT H (NEGATIVE) Urine Nitrite NEGATIVE (NEGATIVE) Urine Bilirubin NEGATIVE (NEGATIVE) Urine Urobilinogen 0.2 (<2.0) EU/dL Ur Leukocyte Esterase NEGATIVE (NEGATIVE) Urine RBC 0-1 (0-2/HPF) Urine WBC 0-1 (0-5/HPF) Ur Epithelial Cells RARE (NONE-FEW) Urine Bacteria RARE (NEGATIVE) Meds: Medications Generic Name Dose Route Start Last Admin Trade Name Freq PRN Reason Stop Dose Admin Sodium Chloride 10 ml 05/16/21 12:37 05/16/21 13:58 Sodium Chloride 0.9% 10 Ml Syringe FLUSH 10 ml ASDIRECTED PRN Administration Keep Vein Open Sodium Chloride 2.5 ml 05/16/21 12:37 05/16/21 13:58 Sodium Chloride 0.9% 2.5 Ml Syringe FLUSH 2.5 ml ASDIRECTED PRN Administration Keep Vein Open Discontinued Medications Generic Name Dose Route Start Last Admin Trade Name Freq PRN Reason Stop Dose Admin Sodium Chloride 1,000 mls @ 1,000 mls/hr 05/16/21 13:50 05/16/21 13:57 Normal Saline IV 05/16/21 14:49 1,000 mls/hr .Bolus ONE Administration Pantoprazole Sodium 80 mg/ 20 mls @ 420 mls/hr 05/16/21 16:00 Sodium Chloride IVPUSH 05/16/21 16:02 ONETIME ONE Iopamidol 100 ml 05/16/21 14:23 05/16/21 14:23 Iopamidol 755 Mg/Ml 500 Ml Multipack Bottle IVPUSH 05/16/21 14:24 100 ml ONETIME STA Administration Departure - Departure Time of Disposition: 16:12 Disposition: Home, Self-Care 01 Condition: Good Clinical Impression: Acute gastritis, Left renal mass - Discharge Information Prescriptions: Pantoprazole [ProTONIX] 40 mg PO DAILY #60 tab.cr Instructions: Gastritis, Adult, [id number]-Fxta, Renal Mass Referrals: PCP,None [Primary Care Provider] - Forms: ED Department Discharge Additional Instructions: [facility] and decide follow-up including endoscopy. There also was a lump on her left kidney and [facility] to make sure it is not something that could grow or harming. [facility] [address] [place] [id number] [id number] In this town endoscopies and upper GI inspection of the stomach are done by the [facility] - General Surgery Professional [address], [address] [place] [address] The following information is given to patients seen in the emergency department who are being discharged to home. This information is to outline your options for follow-up care. We provide all patients seen in our emergency department with a follow-up referral. The need for follow-up, as well as the timing and circumstances, are variable depending upon the specifics of your emergency department visit. If you don't have a primary care physician on staff, we will provide you with a referral. We always advise you to contact your personal physician following an emergency department visit to inform them of the circumstance of the visit and for follow-up with them and/or the need for any referrals to a consulting specialist. The emergency department will also refer you to a specialist when appropriate. This referral assures that you have the opportunity for follow-up care with a specialist. All of these measure are taken in an effort to provide you with optimal care, which includes your follow-up. Under all circumstances we always encourage you to contact your private physician who remains a resource for coordinating your care. When calling for follow-up care, please make the office aware that this follow-up is from your recent emergency room visit. If for any reason you are refused follow-up, please contact the [facility] Emergency Department at and asked to speak to the emergency department charge nurse. Sepsis Event Note (ED) - Evaluation Sepsis Screening Result: No Definite Risk - Focused Exam Vital Signs: Vital Signs Temp Pulse Resp BP Pulse Ox 05/16/21 12:21 35.5 C L 94 17 124/84 98 - My Orders Last 24 Hours: My Active Orders 05/16/21 12:37 Sodium Chloride 0.9% [Saline Flush] 10 ml FLUSH ASDIRECTED PRN Sodium Chloride 0.9% [Saline Flush] 2.5 ml FLUSH ASDIRECTED PRN 05/16/21 12:38 Saline Lock Insert [OM.PC] Stat - Assessment/Plan Last 24 Hours: My Active Orders 05/16/21 12:37 Sodium Chloride 0.9% [Saline Flush] 10 ml FLUSH ASDIRECTED PRN Sodium Chloride 0.9% [Saline Flush] 2.5 ml FLUSH ASDIRECTED PRN 05/16/21 12:38 Saline Lock Insert [OM.PC] Stat
[2021-05-16] MEDS: Sodium Chloride 0.9% 2.5 ML Syringe FLUSH PRN ×2 (12:50→13:58)
[2021-05-16] MEDS: Sodium Chloride 0.9% 10 ML Syringe FLUSH PRN ×2 (12:51→13:58)
[2021-05-16 13:29] LABS: BLOOD UREA NITROGEN,BUN 19 mg/dL (7.0-18.0); CHLORIDE,CL 103 mmol/L (98-107); GLUCOSE RANDOM 144 mg/dL (74-106); LIPASE 75 U/L (73-393); POTASSIUM,K 3.7 mmol/L (3.5-5.1); SODIUM,NA 138 mmol/L (136-148)
--- NOTE | 2021-05-16 13:40 | CR ---
INDICATION: Chest and abdominal pain with constipation. TECHNIQUE: Chest/abdomen, 5 views. COMPARISON: None. FINDINGS: No focal consolidation, pleural effusion, or pneumothorax. Normal heart size and pulmonary vascularity. Nonobstructive bowel gas pattern. Mild amount of scattered gas and stool throughout the colon. No pneumatosis. No free air on upright view. Pelvic phleboliths. The bones are unremarkable. IMPRESSION: 1. No acute cardiopulmonary findings. 2. Nonobstructive bowel gas pattern. Dictated by Jeanette Jones MD @ 05/16/2021 1:39:08 PM (Electronically Signed)
[2021-05-16] MEDS ORDERED: Sodium Chloride 0.9% 1,000 ML IV ONE (13:50)
[2021-05-16] MEDS ORDERED: Iopamidol 755 MG/ML 500 ML Multipack Bottle IVPUSH STA (14:23)
--- NOTE | 2021-05-16 15:52 | CT ---
INDICATION: Abdominal pain. COMPARISON: Chest and radiographic examination of the abdomen same date. TECHNIQUE: CT abdomen and pelvis with intravenous contrast; coronal and sagittal reformats. FINDINGS: Extensive edema involving the gastric mucosa; rule out severe gastritis. Mild diffuse fatty infiltration of the liver. No focal hepatic or splenic pathology. No pancreatic pathology. Gallbladder is unremarkable. No adrenal pathology. No kidney stones or obstructive uropathy. A 3.1 cm cortical cyst upper pole right kidney with the average Hounsfield units measuring less than 10. A 2.6 x 2.4 cm mass identified along the lateral aspect interpolar region left kidney with the average Hounsfield units measuring 54. No obstructive uropathy or perinephric pathology. No kidney stones. No retroperitoneal lymphadenopathy. No evidence of abdominal or pelvic ascites. Normal appendix. CT study of the pelvis is unremarkable. No evidence of pneumoperitoneum or intestinal obstruction. Splenic vein, superior mesenteric vein and the portal vein are unremarkable. IMPRESSION: 1. Marked edema involving the gastric mucosa; rule out severe gastritis. 2. Mild diffuse fatty infiltration of the liver. 3. A 2.6 x 2.4 cm indeterminate soft tissue mass left kidney with average Hounsfield units measuring 54; worrisome for in incidental renal cell carcinoma; further assessment with a focused ultrasound examination of the left kidney is suggested. 4. Cortical cyst upper pole right kidney. Please note that all CT scans at this facility use dose modulation, iterative reconstruction, and/or weight-based dosing when appropriate to reduce radiation dose to as low as reasonably achievable. Dictated by Trent Goel MD @ 05/16/2021 3:50:36 PM (Electronically Signed)
[2021-05-16] MEDS ORDERED: Pantoprazole 80 MG in Sodium Chloride 0.9% 20 ML IVPUSH ONE (16:00)
[2021-05-16 18:12] VITALS: BP 133/72; PULSE 99
== END 2021-05-16 16:25 | disposition home or self-care (01) ==
LOC: MW.ED 12:12
DX: K29.00 Acute gastritis without bleeding (principal); N28.89 Other specified disorders of kidney and ureter; I10 Essential (primary) hypertension; E66.9 Obesity, unspecified; Z68.25 Body mass index [BMI] 25.0-25.9, adult; Z88.8 Allergy status to other drugs, medicaments and biological substances; Z79.82 Long term (current) use of aspirin; Z79.899 Other long term (current) drug therapy
CPT/HCPCS: 36415; 74022; 74177; 80053; 81001; 83605; 83690; 84484; 85025; 93005; 96374; 99285; C9113; J7030; Q9967

== ENCOUNTER 2021-07-31 07:30 | Day surgery (SDC) | payer OTHER ==
[~2021-07-31 07:30] MED LIST changes: -Acetaminophen/HYDROcodone 325-5 MG Tab PO PRN; -Lactated Ringers 1,000 ML IV SCH; +Propofol 200 MG/20 ML SDV ONE; -ceFAZolin 2 GM in Premix Bag 1 BAG IV SCH; +fentaNYL 100 MCG/2 ML SDV ONE
--- NOTE | 2021-07-31 07:52 | PCM.PREANE ---
Preanesthetic Assessment - Anesthesia/Transfusion/Family Hx Anesthesia History: Prior Anesthesia Without Reaction Other Type of Anesthesia Reaction Comment: Denies any known problems in the past Transfusion History: No Prior Transfusion(s) - Review of Systems General: No Symptoms Pulmonary: No Symptoms Cardiovascular: No Symptoms Gastrointestinal: No Symptoms Neurological: No Symptoms Other: Reports: None - Physical Assessment NPO Status Date: 07/31/21 NPO Status Time: 00:00 Height: 5 ft 6 in Weight: 222 lb ASA Class: 3 Mental Status: Alert & Oriented x3 Airway Class: Mallampati = 2 Dentition: Reports: Normal Dentition ROM/Head Extension: Full Lungs: Clear to Auscultation, Normal Respiratory Effort Cardiovascular: Regular Rate, Regular Rhythm - Allergies Allergies/Adverse Reactions: Allergies Allergy/AdvReac Type Severity Reaction Status Date / Time metformin Allergy Unknown Dizziness Verified 07/25/21 07:39 - Acknowledgements Anesthesia Type Planned: General Anesthesia Pt an Appropriate Candidate for the Planned Anesthesia: Yes Alternatives and Risks of Anesthesia Discussed w Pt/Guardian: Yes Pt/Guardian Understands and Agrees with Anesthesia Plan: Yes PreAnesthesia Questionnaire HEENT History: Reports: None Cardiovascular History: Reports: Hypertension Respiratory History: Reports: None Gastrointestinal History: Reports: Gastritis Genitourinary History: Reports: None Musculoskeletal History: Reports: Fracture Other Musculoskeletal History: hx fx leg and both ankles Neurological History: Reports: None Psychiatric History: Reports: None Endocrine/Metabolic History: Reports: Obesity/BMI 30+, Other (See Below) Other Endocrine/Metabolic History: states in the past he was told he was borderline diabetic, states his blood sugars have been good and is presently on no medication for this Hematologic History: Reports: None Immunologic History: Reports: None Oncologic (Cancer) History: Reports: None Dermatologic History: Reports: None - Infectious Disease History Infectious Disease History: Reports: None - Past Surgical History Head Surgeries/Procedures: Reports: None HEENT Surgical History: Reports: None Cardiovascular Surgical History: Reports: None Respiratory Surgical History: Reports: None GI Surgical History: Reports: None Male Surgical History: Reports: None Endocrine Surgical History: Reports: None Neurological Surgical History: Reports: None Musculoskeletal Surgical History: Reports: Arthroscopic Knee, ORIF Other Musculoskeletal Surgeries/Procedures:: ORIF both ankles, left knee scope, ORIF right tib/fib fx Oncologic Surgical History: Reports: None Dermatological Surgical History: Reports: None - SUBSTANCE USE Tobacco Use Status *Q: Current Every Day Tobacco User Tobacco Use Within Last Twelve Months: Cigarettes Days Per Week of Alcohol Use: 7 Number of Drinks Per Day: 1 Total Drinks Per Week: 7 - HOME MEDS Home Medications: Home Meds Cholecalciferol (Vitamin D3) [Vitamin D3] 1,000 units PO DAILY 03/16/19 [History] Losartan [Cozaar] 100 mg PO DAILY 03/16/19 [History] amLODIPine Besylate [Amlodipine Besylate] 10 mg PO DAILY 03/16/19 [History] traMADol HCl [Tramadol HCl] 50 mg PO TID PRN 07/25/21 [History] - CURRENT (IN HOUSE) MEDS Current Meds: Current Medications Lactated Ringer's (Ringers, Lactated) 1,000 mls @ 125 mls/hr IV ASDIRECTED [facility] Last Admin: 07/31/21 07:51 Dose: 125 mls/hr Documented by: Discontinued Medications Fentanyl (Fentanyl 100 Mcg/2 Ml Sdv) Confirm Administered Dose 100 mcg .ROUTE .STK-MED ONE Stop: 07/31/21 07:23 Lidocaine HCl (Lidocaine 1% 5 Ml Sdv) Confirm Administered Dose 5 ml .ROUTE .STK-MED ONE Stop: 07/31/21 07:22 Propofol (Propofol 200 Mg/20 Ml Sdv) Confirm Administered Dose 400 mg .ROUTE .STK-MED ONE Stop: 07/31/21 07:23
[2021-07-31] MEDS ORDERED: Lactated Ringers 1,000 ML IV SCH (08:30)
[2021-07-31] MEDS ORDERED: Benzocaine 20% Topical Spray UD ONE (08:39)
[2021-07-31] MEDS ORDERED: Propofol 200 MG/20 ML SDV ONE (09:04)
--- NOTE | 2021-07-31 09:17 | PCM.POSTAN ---
POST ANESTHESIA ASSESSMENT - MENTAL STATUS Mental Status: Alert, Oriented - VITAL SIGNS Vital Signs: Last Vital Signs Temp 98.1 F 07/31/21 07:54 Pulse 81 07/31/21 07:54 Resp 16 07/31/21 07:54 BP 126/79 07/31/21 07:54 Pulse Ox 97 07/31/21 07:54 - RESPIRATORY Respiratory Status: Respiratory Rate WNL, Airway Patent, O2 Saturation Stable - CARDIOVASCULAR CV Status: Pulse Rate WNL, Blood Pressure Stable - GASTROINTESTINAL GI Status: No Symptoms - POST OP HYDRATION Hydration Status: Adequate & Stable
--- NOTE | 2021-07-31 09:17 | PCM.OPNOTE ---
- General Post-Op/Procedure Note Date of Surgery/Procedure: 07/31/21 Operative Procedure(s): EGD with biposies Findings: Thickened mucosa of stomach Gastritis Dictation number: [id number] Pre Op Diagnosis: Thickened stomach on CT and MRI Post-Op Diagnosis: Thickened mucosa of stomach. Gastritis Anesthesia Technique: MAC Primary Surgeon: Elliott Alcantara Pathology: multiple biopsies Complications: None Condition: Good
--- NOTE | 2021-07-31 09:17 | PCM48HPAN ---
Post Anesthesia Note - EVALUATION WITHIN 48HRS OF ANESTHETIC Patient Participated in Evaluation: Yes Respiratory Function Stable: Yes Airway Patent: Yes Cardiovascular Function Stable: Yes Hydration Status Stable: Yes Pain Control Satisfactory: Yes Nausea and Vomiting Control Satisfactory: Yes Mental Status Recovered: Yes Vital Signs: Last Vital Signs Temp 98.1 F 07/31/21 07:54 Pulse 81 07/31/21 07:54 Resp 16 07/31/21 07:54 BP 126/79 07/31/21 07:54 Pulse Ox 97 07/31/21 07:54
[2021-07-31 11:35] VITALS: BP 139/84; PULSE 79
--- NOTE | 2021-07-31 14:14 | OR ---
SURGEON: SHRUTHI CASH MD DATE OF PROCEDURE: 07/31/2021 PREOPERATIVE DIAGNOSIS: Thickening of stomach seen on CT scan and the MRI. POSTOPERATIVE DIAGNOSES: 1. Thickening mucosa of the stomach, especially in the antrum and pylorus area. 2. Mild gastritis with some punctate bleeding. 3. Small scar-looking tissue in the lesser curvature of the body of the stomach. PROCEDURE PERFORMED: Esophagogastroduodenoscopy with biopsies. Endoscopist: Shruthi Cash MD ANESTHESIA: With Anesthesiology. EXTENT OF EGD: To the duodenum. LIMITATIONS: None. REASON FOR PROCEDURE: Patient is a pleasant 55-year-old gentleman who had one episode of severe stomach pain. He had a CT scan that showed some thickening of this gastric mucosa along with a lesion in his left kidney. He had an MRI that also showed marked edema of his gastric mucosa and again, the left kidney lesion. He was sent for an EGD with likely biopsies. He also says that next Thursday, he is planning to get a biopsy of his kidney mass. The patient denies any swallowing issues. He says he gets heartburn every once in awhile, but it does not happen often. PROCEDURE IN DETAIL: Physical examination was performed. Major risks and benefits associated with the procedure were explained to the patient in detail. Patient verbalized understanding and agreement of the same. Patient was then connected to appropriate monitoring devices and IV was started. EKG, pulse, pulse oximetry, blood pressure, and capnography were monitored throughout procedure. Continuous oxygen and sedation were provided by the anesthesiologist. After sedation was began, endoscope was advanced under direct visualization without difficulty to the upper GI tract. The anatomy of mucosa of the duodenum, pylorus, stomach, GE junction and esophagus were examined. The duodenum appeared normal. I did do some random biopsies of duodenum when I was coming out of the duodenum into the antrum. His pylorus mucosa seemed a little bit thickened, so did biopsies at the pylorus. Out in the stomach, both retro and antegrade views were done. The patient did have some mild gastritis with some couple punctate area of bleeding. Did do multiple random biopsies of the antrum, body, and fundus of the stomach. The lesser curvature of the stomach did have a small, little, white eschar. It looked like potentially healed ulcer. I did do biopsies of this and sent in a separate jar. Of note, stomach had a thick, whitish mucosa, looked more like thick saliva. This was suctioned and irrigated out for a great look at the mucosa. Also of note, in doing the biopsies, mucosa did feel thicker and less pliable than normal, especially in the pylorus and antrum area. Scope was brought to the GE junction. The patient did have a small sliding hiatal hernia. GE junction actually felt pretty good with a good Z-line. I did do several biopsies of the GE junction. GE junction was approximately 37 cm from the incisors. The scope was brought to the stomach. Stomach was de-insufflated. Biopsies done. Good hemostasis. Scope was brought up through the esophagus, GE junction, biopsy sites appeared to have good hemostasis. Esophagus appeared normal. Scope was completely removed, procedure was terminated. ENDOSCOPIC DIAGNOSES: 1. Apparent thickening of the mucosa of the stomach. 2. Mild gastritis. RECOMMENDATIONS: The patient is to follow up in the clinic to go over his pathology. RASHMI / ARIELLE /[id number]
== END 2021-07-31 10:05 | disposition home or self-care (01) ==
LOC: MW.SDS 07:30
PROVIDERS: ATTEND Surgery
DX: K31.A0 Gastric intestinal metaplasia, unspecified (principal); B96.81 Helicobacter pylori [H. pylori] as the cause of diseases classified elsewhere; K22.70 Barrett's esophagus without dysplasia; K29.51 Unspecified chronic gastritis with bleeding; K31.89 Other diseases of stomach and duodenum; K44.9 Diaphragmatic hernia without obstruction or gangrene; I10 Essential (primary) hypertension; F17.210 Nicotine dependence, cigarettes, uncomplicated; E66.9 Obesity, unspecified; Z88.8 Allergy status to other drugs, medicaments and biological substances; Z98.890 Other specified postprocedural states; Z79.899 Other long term (current) drug therapy; Z68.35 Body mass index [BMI] 35.0-35.9, adult
CPT/HCPCS: 43239; A9270; J2704; J3010; J7120; 00731